=== PATIENT | male | born 1990 | race African-American/Black ===

== ENCOUNTER 2019-08-27 03:16 | Emergency (ER) | payer MEDICARE, MEDICAID ==
[~2019-08-27] VITALS: Ht 175.3 cm; Wt 68.0 kg
[2019-08-27 04:40] VITALS: BP 124/76
== END 2019-08-27 04:50 | disposition home or self-care (01) ==
LOC: ER 03:19
DX: J01.90 Acute sinusitis, unspecified (principal); T14.8XXA Other injury of unspecified body region, initial encounter; I10 Essential (primary) hypertension; X58.XXXA Exposure to other specified factors, initial encounter; Y93.89 Activity, other specified; Y92.89 Other specified places as the place of occurrence of the external cause; Y99.8 Other external cause status
CPT/HCPCS: 71045

== ENCOUNTER 2020-07-29 15:04 | Emergency (ER) | payer MEDICARE, MEDICAID ==
[~2020-07-29] VITALS: Ht 175.3 cm; Wt 79.8 kg
[2020-07-29 15:15] VITALS: BP 132/79
[2020-07-29 16:36] LABS: Amphetamine Screen, Urine NEGATIVE (NEGATIVE); Barbiturate Scree,Urine NEGATIVE (NEGATIVE); Benzodiazephine Screen, Urine NEGATIVE (NEGATIVE); Cannabinoid Screen, Urine POSITIVE (NEGATIVE); Cocaine Screen, Urine NEGATIVE (NEGATIVE); Opiate Scree,Urine NEGATIVE (NEGATIVE); Phencyclidine Screen, Urine NEGATIVE (NEGATIVE)
== END 2020-07-29 17:15 | disposition home or self-care (01) ==
LOC: ER 15:04
DX: F12.10 Cannabis abuse, uncomplicated (principal); I10 Essential (primary) hypertension
CPT/HCPCS: 80307